=== PATIENT | male | born 1950 | race Caucasian/White ===

== ENCOUNTER 2023-08-22 09:10 | Day surgery (SDC) | payer OTHER, SELFPAY ==
--- NOTE | 2023-08-21 10:51 | HO.ANESPROP2 ---
HPI - Anesthesia Eval Consult details Narrative: 73yo M for Colonoscopy PMFSH Past Medical History Medical History Mitral valvular insufficiency GERD (gastroesophageal reflux disease) HLD (hyperlipidemia) HTN (hypertension) Elevated PSA Surgical History Surgical History H/O colonoscopy Social History Social History Patient Tobacco Use Status: Former Tobacco user Smoked in Last 30 Days: Yes Use of substances other than those prescribed or required for medical reasons: No Are you DNR?: No Advance Directives: No Advance Directives Information Provided: Yes Meds Allergies Allergy/AdvReac Type Severity Reaction Status Date / Time No Known Allergies Allergy Verified 08/22/23 09:32 Home Medications Medication Instructions Recorded Confirmed Last Taken Type aspirin 81 mg tablet,delayed 81 mg PO DAILY 08/21/23 08/22/23 08/14/23 History release chlorthalidone 25 mg tablet 25 mg PO Q OTHER DAY 08/21/23 08/22/23 08/20/23 History multivitamin 1 tab PO DAILY 08/21/23 08/22/23 08/21/23 History rosuvastatin 10 mg tablet 10 mg PO DAILY 08/21/23 08/22/23 08/21/23 History tamsulosin 0.4 mg capsule 0.4 mg PO DAILY 08/21/23 08/22/23 08/21/23 History Exam Exam Date and Time: August 21, 2023 1051 Assessment and Plan Assessment Anesthesia Assessment: Chart Reviewed
[2023-08-22 09:18] VITALS: BMI 30.4
[2023-08-22] MEDS: Lactated Ringers 1,000 ML 100 ML IVCONT (09:35)
[2023-08-22 09:36] VITALS: BP 136/75; PULSE 79; RESP 16; TEMP 36.6; O2SAT 98
--- NOTE | 2023-08-22 10:11 | P.CONAN_ITS ---
[facility] Past Medical History Medical History Mitral valvular insufficiency GERD (gastroesophageal reflux disease) HLD (hyperlipidemia) HTN (hypertension) Elevated PSA Functional capacity: independent ambulation Family History Family history of problems with anesthesia: No Surgical History Surgical History H/O colonoscopy History of Problems with Anesthesia: No Social History Social History Patient Tobacco Use Status: Former Tobacco user Smoked in Last 30 Days: Yes Use of substances other than those prescribed or required for medical reasons: No Are you DNR?: No Advance Directives: No Advance Directives Information Provided: Yes Meds Allergies Allergy/AdvReac Type Severity Reaction Status Date / Time No Known Allergies Allergy Verified 08/22/23 09:32 Active Medications: Current Medications Lactated Ringer's (Lr) 1,000 mls @ 100 mls/hr IVCONT .Q10H MERY Last Admin: 08/22/23 09:35 Dose: 100 mls/hr Home Medications Medication Instructions Recorded Confirmed Last Taken Type aspirin 81 mg tablet,delayed 81 mg PO DAILY 08/21/23 08/22/23 08/14/23 History release chlorthalidone 25 mg tablet 25 mg PO Q OTHER DAY 08/21/23 08/22/23 08/20/23 History multivitamin 1 tab PO DAILY 08/21/23 08/22/23 08/21/23 History rosuvastatin 10 mg tablet 10 mg PO DAILY 08/21/23 08/22/23 08/21/23 History tamsulosin 0.4 mg capsule 0.4 mg PO DAILY 08/21/23 08/22/23 08/21/23 History Exam Exam Date and Time: August 22, 2023 1011 Height,Weight and Vital Signs: Height 5 ft 8 in Weight 90.718 kg Last Vital Signs Temp 97.8 F 08/22/23 09:36 Pulse 79 08/22/23 09:36 Resp 16 08/22/23 09:36 BP 136/75 08/22/23 09:36 Pulse Ox 98 08/22/23 09:36 O2 Del Method Room Air 08/22/23 09:36 Airway Mallampati Class: II TM Dist: >3cm Neck ROM: Full Heart: RRR Lungs: CTA Assessment and Plan Assessment Anesthesia Assessment: Anesthesia Plan Discussed Final Anesthetic Review Family History of Problems with Anesthesia: No History of Problems with Anesthesia: No ASA Class: II Final Preanesthetic Review: Meds/Allgs Chart Reviewed, Consent Obtained/Reviewed and Anes Risks/Benef Reviewed Patient Risk: Low Procedure Risk: Low Anesthetic Plan Anesthetic Plan: MAC: Disposition: Standard PACU
--- NOTE | 2023-08-22 10:33 | MHC.SHP ---
Pre-Procedural Eval Section A Date of Service: 08/22/23 Section B Chief Complaint: screening Details of Present Illness: see H&P no changes Relevant Family History (Specify if Yes): No Relevant Social History: None Present Medications: see Short Stay Collaborative assessment Medical History: No relevant PMH Allergies: Allergies Allergy/AdvReac Type Severity Reaction Status Date / Time No Known Allergies Allergy Verified 08/22/23 09:32 Review of Systems Sugical H&P ROS: Negative: Constitution, Cardiovascular, Respiratory, Neurological, Psychiatric, Hem-Onc, Allergic/Immunologic, Gastrointestinal, Genitourinary, Musculoskeletal, Integumentary, Endocrine and Eyes/Ears/Nose/Throat Exam Surgical H&P Exam: Normal: HEENT, Normal: Heart, Normal: Lungs, Normal: Extremities, Normal: Abdomen, Normal: Skin and Normal: Neurological Plan Diagnosis/Plan: Unchanged I have reviewed the history and physical and performed a pertinent physical examination on my patient. No changes have occurred unless specified. Time Spent With Patient Time: Total time managing care of this patient today ____ minutes.
--- NOTE | 2023-08-22 11:15 | P.BOP_ITS ---
Brief Operative Note Date of Service: 08/22/23 Pre-op diagnosis: screening Post-op diagnosis: same Surgeon: Lion Perez MD Anesthesia: MAC Was an Claim Processing Specialist used for this Procedure?: No Estimated blood loss (mL): 0 Pathology: none sent Condition: stable Disposition: PACU
[2023-08-22 11:17] VITALS: BP 110/61; PULSE 58; RESP 16; TEMP 36.1; O2SAT 95
--- NOTE | 2023-08-22 11:19 | HO.POSTANES ---
Post Anesthesia Evaluation Post Anesthesia Evaluation Date of Service: 08/22/23 Vital Signs: Vital Signs Temp Pulse Resp BP Pulse Ox O2 Del Method 08/22/23 11:17 97 F 58 16 110/61 95 Room Air 08/22/23 09:36 97.8 F 79 16 136/75 98 Room Air Anesthesia: Monitored and General Mental Status: Awake Pain Control: Satisfactory Nausea/Vomiting: None Hydration: Adequate Anesthesia-Related Issues: No Anes. Related Issues
[2023-08-22 11:32] VITALS: BP 108/59; PULSE 50; RESP 16; O2SAT 96
--- NOTE | 2023-08-22 11:46 | OP_ITS ---
DATE OF SERVICE: 08/22/2023 SURGEON: Lion Perez MD INDICATIONS: Colon cancer screening. PREOPERATIVE DIAGNOSIS: POSTOPERATIVE DIAGNOSIS: PROCEDURE PERFORMED: Colonoscopy to the cecum. ESTIMATED BLOOD LOSS: COMPLICATIONS: ANESTHESIA: Monitored anesthesia care. ASSISTANTS: SPECIMENS: DESCRIPTION OF PROCEDURE: A history and physical was performed. The risks and benefits of the procedure were explained to the patient, and informed consent was obtained. The patient was placed in a left lateral decubitus position. A digital rectal exam was performed and was found to be normal. The Olympus pediatric video colonoscope was introduced into the rectum and advanced to the cecum. The cecum was identified by transillumination, palpation, and identification of the ileocecal valve. Examination was performed. The scope was removed. He tolerated the procedure well and was returned to the recovery area in stable condition. FINDINGS: The terminal ileum was not examined. The visualized colonic mucosa was normal. There was a large amount of liquid stool in the cecum, transverse colon, and rectosigmoid, which was washed and suctioned. There was some undigested fibrous material that clogged the scope. This limited the sensitivity examination for detection of small polyps. No polyps were identified. Retroflexed examination showed some small internal hemorrhoids. IMPRESSION: Normal colonoscopy. RECOMMENDATION: Consider repeat examination in 3 to 5 years based on today's examination. MD ADITI Wiley/LISANDRA / [id number]
[2023-08-22 11:47] VITALS: BP 117/56; PULSE 50; RESP 16; TEMP 36.2; O2SAT 98
== END 2023-08-22 12:34 | disposition home or self-care (01) ==
PROVIDERS: PCP Nurse Practitioner Adult Health; Visit Provider Internal Medicine Gastroenterology
PROC: 0DJD8ZZ Inspection of Lower Intestinal Tract, Via Natural or Artificial Opening Endoscopic (ICD-10-PCS; CPT 45378; principal; 2023-08-22 10:20)
DX: Z12.11 Encounter for screening for malignant neoplasm of colon (principal); Z80.0 Family history of malignant neoplasm of digestive organs; Z86.010 Personal history of colon polyps; K64.8 Other hemorrhoids; K21.9 Gastro-esophageal reflux disease without esophagitis; I10 Essential (primary) hypertension; E78.5 Hyperlipidemia, unspecified; R97.20 Elevated prostate specific antigen [PSA]; Z79.82 Long term (current) use of aspirin; Z79.899 Other long term (current) drug therapy; Z87.891 Personal history of nicotine dependence
CPT/HCPCS: 45378